=== PATIENT | female | born 1990 | race African-American/Black ===

== ENCOUNTER 2018-09-23 12:59 | Emergency (ER) | payer OTHER, MEDICAID ==
[~2018-09-23] VITALS: Ht 157.5 cm; Wt 49.9 kg
[~2018-09-23 12:59] MED LIST: DELTASONE20 MG PO; HYDROXYZINE HCL25 M1 PO; IBUPROFEN 400400 M2 PO; NOHOMEMEDICATIONS; TRINATE TABLET1 TAB PO; ZOFRAN ODT4 MG PO
[2018-09-23 13:32] LABS: URINE BILIRUBIN NEGATIVE (Negative); URINE BLOOD 3+ (Negative); URINE CLARITY SL CLOUDY; URINE COLOR RED; URINE GLUCOSE-RANDOM NEGATIVE (Negative); URINE KETONES TRACE (Negative); URINE LEUKOCYTES-REFLEX TRACE (Negative); URINE NITRITE-REFLEX NEGATIVE (Negative); URINE PROTEIN 2+ (Negative)
[2018-09-23 13:37] LABS: BACTERIA-REFLEX 1-9 Few /HPF (None Seen); CASTS None Seen /LPF (None Seen); CRYSTALS None Seen /LPF (None Seen); MUCUS 0-3 Light strn/LPF (None Seen); SQUAMOUS 0-3 Few /LPF (0-3); URINE RBC >20 Many /HPF (0-2); URINE WBC-REFLEX 0-5 Rare /HPF (0-5)
[2018-09-23] MEDS ORDERED: BACTRIM DS TAB1 EACH PO (13:55)
[2018-09-23 14:18] LABS: INFLUENZA A ANTIGEN None Detected (None Detect); INFLUENZA B ANTIGEN None Detected (None Detect)
[2018-09-23 14:23] VITALS: BP 114/73
== END 2018-09-23 14:24 | disposition home or self-care (01) ==
LOC: M.ERS 12:59
PROVIDERS: Nurse Practitioner Family
DX: N39.0 Urinary tract infection, site not specified (principal); J02.9 Acute pharyngitis, unspecified; R51 Headache

== ENCOUNTER 2018-10-15 18:30 | Emergency (ER) | payer OTHER, MEDICAID ==
[~2018-10-15] VITALS: Ht 157.5 cm; Wt 45.4 kg
[~2018-10-15 18:30] MED LIST changes: +BACTRIM DS TAB1 EACH PO
[2018-10-15 19:07] LABS: URINE BILIRUBIN NEGATIVE (Negative); URINE BLOOD NEGATIVE (Negative); URINE CLARITY CLEAR; URINE COLOR YELLOW; URINE GLUCOSE-RANDOM NEGATIVE (Negative); URINE KETONES NEGATIVE (Negative); URINE LEUKOCYTES-REFLEX NEGATIVE (Negative); URINE NITRITE-REFLEX NEGATIVE (Negative); URINE PROTEIN NEGATIVE (Negative); URINE UROBILINOGEN 0.2 E.U./dl (0.2-1.0)
[2018-10-15 19:15] LABS: CALCIUM 9.2 mg/dL (8.5-10.1); CREATININE 0.7 mg/dL (0.6-1.3); POTASSIUM 3.4 mmol/L (3.5-5.1)
[2018-10-15 19:19] LABS: HEMATOCRIT 37.9 % (37.0-47.0); HEMOGLOBIN 12.1 gm/dL (12.0-15.0); RDW-CV 14.2 % (10.5-14.5)
[2018-10-15 19:20] LABS: ALBUMIN 4.4 g/dL (3.4-5.0); TOTAL BILIRUBIN 0.4 mg/dL (<0.1-1.0); TOTAL PROTEIN 8.8 g/dL (6.4-8.2)
[2018-10-15 19:21] LABS: MCV 75.1 fL (80.0-100.0); MPV 7.8 fl. (7.2-11.1); NUCLEATED RBCS 0 /100WBC; PLATELET COUNT* 359 thou/uL (150-400); RBC 5.05 mil/uL (4.20-5.00); WBC 6.6 thou/uL (4.0-11.0)
[2018-10-15 20:18] LABS: ABSOLUTE BASOPHILS 0.1 thou/uL (0.0-0.2); ABSOLUTE EOSINOPHILS 0.3 thou/uL (0.0-0.7); ABSOLUTE LYMPHOCYTES 1.8 thou/uL (0.8-5.3); ABSOLUTE MONOCYTES 0.4 thou/uL (0.0-1.2); PLATELET ESTIMATE ADEQUATE
[2018-10-15] MEDS ORDERED: TRAMADOL 50 MG50 MG PO (20:38)
[2018-10-15 21:01] VITALS: BP 106/72
== END 2018-10-15 21:02 | disposition home or self-care (01) ==
LOC: M.ERS 18:30
PROVIDERS: Physician Assistant
DX: R10.13 Epigastric pain (principal); R10.33 Periumbilical pain; R11.10 Vomiting, unspecified

== ENCOUNTER 2019-05-02 19:11 | Emergency (ER) | payer OTHER ==
[~2019-05-02] VITALS: Ht 157.5 cm; Wt 45.4 kg
[~2019-05-02 19:11] MED LIST changes: +TRAMADOL 50 MG50 MG PO
[2019-05-02 19:46] LABS: ABSOLUTE EOSINOPHILS 0.1 thou/uL (0.0-0.7); ABSOLUTE LYMPHOCYTES 1.4 thou/uL (0.8-5.3); ABSOLUTE MONOCYTES 0.4 thou/uL (0.0-1.2); ABSOLUTE NEUTROPHILS 1.6 thou/uL (1.6-8.1); BASOPHILS 0.6 %; EOSINOPHILS 3.6 %; HEMOGLOBIN 11.5 gm/dL (12.0-15.0); LYMPHOCYTES 39.8 %; MCH 23.2 pg (26.0-34.0); MCHC 31.1 g/dL (28.0-37.0); MCV 74.5 fL (80.0-100.0); MONOCYTES 10.6 %; NUCLEATED RBCS 0 /100WBC; PLATELET COUNT* 250 thou/uL (150-400); POLYS 45.4 %; RBC 4.96 mil/uL (4.20-5.00); WBC 3.5 thou/uL (4.0-11.0)
[2019-05-02 19:58] LABS: CALCIUM 8.7 mg/dL (8.5-10.1); CREATININE 0.6 mg/dL (0.6-1.3); POTASSIUM 3.5 mmol/L (3.5-5.1)
[2019-05-02 20:03] LABS: ALBUMIN 3.9 g/dL (3.4-5.0); TOTAL BILIRUBIN 0.8 mg/dL (<0.1-1.0); TOTAL PROTEIN 7.9 g/dL (6.4-8.2)
[2019-05-02 20:19] LABS: URINE BILIRUBIN NEGATIVE (Negative); URINE BLOOD NEGATIVE (Negative); URINE CLARITY CLEAR; URINE COLOR YELLOW; URINE GLUCOSE-RANDOM NEGATIVE (Negative); URINE KETONES NEGATIVE (Negative); URINE LEUKOCYTES-REFLEX NEGATIVE (Negative); URINE NITRITE-REFLEX NEGATIVE (Negative); URINE PROTEIN NEGATIVE (Negative); URINE SPECIFIC GRAVITY 1.025 (1.005-1.030); URINE UROBILINOGEN 0.2 E.U./dl (0.2-1.0)
[2019-05-02 20:28] LABS: AMP/METHAMP Negative (Negative); BARBITURATES Negative (Negative); BENZODIAZEPINES Negative (Negative); COCAINE Negative (Negative); METHADONE Negative (Negative); OPIATES Negative (Negative); PCP Negative (Negative); THC Negative (Negative)
[2019-05-02] MEDS ORDERED: ZOFRAN ODT4 MG PO (21:20)
[2019-05-02] MEDS ORDERED: ACETAMINOPHEN-1 EAC1 PO (21:20)
[2019-05-02] MEDS ORDERED: OMEPRAZOLE 20 M20 M1 PO (21:20)
[2019-05-02 21:40] VITALS: BP 108/68
== END 2019-05-02 21:40 | disposition home or self-care (01) ==
LOC: M.ERS 19:11
PROVIDERS: Physician Assistant
DX: R10.13 Epigastric pain (principal); H05.229 Edema of unspecified orbit; R11.10 Vomiting, unspecified; Z90.89 Acquired absence of other organs

== ENCOUNTER 2019-09-04 21:12 | Emergency (ER) | payer OTHER ==
[~2019-09-04 21:12] MED LIST changes: +ACETAMINOPHEN-1 EAC1 PO; +OMEPRAZOLE 20 M20 M1 PO
[2019-09-04 21:20] VITALS: BP 0/0
== END 2019-09-04 21:23 | disposition left against medical advice (07) ==
LOC: M.ERS 21:12
DX: Z53.21 Procedure and treatment not carried out due to patient leaving prior to being seen by health care provider (principal)

== ENCOUNTER 2019-12-28 17:08 | Emergency (ER) | payer OTHER ==
[~2019-12-28] VITALS: Ht 157.5 cm; Wt 45.0 kg
[2019-12-28] MEDS ORDERED: FLEXERIL PO (17:54)
[2019-12-28] MEDS ORDERED: IBUPROFEN 800800 M1 PO (17:54)
[2019-12-28] MEDS ORDERED: NORCO 5-325 TA1 EAC1 PO (17:54)
[2019-12-28 18:07] VITALS: BP 92/68
== END 2019-12-28 18:09 | disposition home or self-care (01) ==
LOC: M.ERS 17:08
DX: M26.602 Left temporomandibular joint disorder, unspecified (principal)

== ENCOUNTER 2020-07-26 20:56 | Emergency (ER) | payer OTHER, MEDICAID ==
[~2020-07-26] VITALS: Ht 157.5 cm; Wt 44.9 kg
[~2020-07-26 20:56] MED LIST changes: +FLEXERIL PO; +IBUPROFEN 800800 M1 PO; +NORCO 5-325 TA1 EAC1 PO
[2020-07-26 21:05] VITALS: BP 123/57
[2020-07-26] MEDS ORDERED: ZYRTEC 10 MG TA10 MG PO (21:38)
[2020-07-26] MEDS ORDERED: FLONASE 0.05%50 MCG NARES (21:38)
[2020-07-26] MEDS ORDERED: AMOXICILLIN 50500 MG PO (21:38)
== END 2020-07-26 21:47 | disposition home or self-care (01) ==
LOC: M.ERS 20:56
DX: J30.9 Allergic rhinitis, unspecified (principal); J32.0 Chronic maxillary sinusitis